=== PATIENT | male | born 1955 | race Caucasian/White ===

== ENCOUNTER 2016-12-10 11:31 | Emergency (ER) | payer MEDICARE, OTHER ==
[~2016-12-10] VITALS: Wt 104.5 kg
[~2016-12-10 11:31] MED LIST: ACET500C5 PO
[2016-12-10] MEDS ORDERED: LIDOCAINE 1%/EPI (MDV) 20 ML INJ IM ONE (13:00)
[2016-12-10] MEDS ORDERED: CLIN-73 PO (13:18)
--- NOTE | 2016-12-10 13:29 | ERD ---
ER Documentation Chief Complaint Date/Time DATE: 12/10/16 TIME: 13:20 Chief Complaint Pain and pus to where he had i and d. no redness noted, area healed. HPI 61 year old male presenting to the emergency department with past medical history of hypertension, hyperlipidemia presenting for a wound check of an abscess on his back that was drained a few weeks ago. Patient has been seen here on November 16 and was given antibiotics. Patient states that he finished his antibiotic last night. He states that he still saw a little drainage. ROS All systems reviewed and are negative except as per history of present illness. Medications Home Meds Active Scripts Clindamycin Hcl* (Clindamycin Hcl*) 300 Mg Capsule, 300 MG PO TID, #15 CAP Prov:ERCIA VELOZ PA-C 12/10/16 Acetaminophen* (Tylophen*) 500 Mg Capsule, 1 CAP PO Q6H Y for PAIN AND OR ELEVATED TEMP, #20 CAP Prov:LACIE SORIA PA-C 11/16/16 Allergies Allergies: Coded Allergies: Unknown: Unable to obtain (Unverified , 12/10/16) PMhx/Soc History of Surgery: Yes (lower back surgery) Anesthesia Reaction: No Hx Neurological Disorder: No Hx Respiratory Disorders: No Hx Cardiac Disorders: Yes (hypertension) Hx Psychiatric Problems: No Hx Miscellaneous Medical Probl: No Hx Alcohol Use: No Hx Substance Use: No Hx Tobacco Use: No Physical Exam Vitals Vital Signs Date Time Temp Pulse Resp B/P Pulse Ox O2 Delivery O2 Flow Rate FiO2 12/10/16 11:38 97.9 94 20 161/91 97 Physical Exam General: WD/WN, in no apparent distress, non-toxic appearing HENT: NC/AT Eyes: Conjunctiva normal Neck: Supple Pulm: Clear to auscultation, normal labored breathing; no wheezing/rales/ rhonchi heard CV: Good capillary refill GI: Non-distended, no guarding Back: No masses Ext: No clubbing, cyanosis, or edema Neuro: Moves on all fours Skin: indurated papule with previous healed incisional site, no surrounding erythema or drainage noted Normal turgor, color, and temperature. No ulcerations or rashes noted. Psych: Normal mood Results 24 hrs Current Medications Medications (Trade) Dose Ordered Sig/Ra Route PRN Reason Start Time Stop Time Status Last Admin Dose Admin Lidocaine/ Epinephrine (Xylocaine 1%/ Epi (Mdv) 20 ml) 20 ml ONCE ONCE IM 12/10/16 13:00 12/10/16 13:01 Cancel Lidocaine/ Epinephrine (Xylocaine 1%/ Epi) 20 ml ONCE INJ 12/10/16 13:30 12/10/16 13:31 Procedures/MDM This is a 61-year-old male presenting to the emergency department to check a wound on his upper back which is likely due to a sebaceous cyst. On examination the papule was indurated without any surrounding erythema, I discussed with patient that if I was to do an incision and drainage and that most likely no drainage would come out. An incision and drainage was attempted , patient is suitable to follow-up with the primary care physician to get a referral to see insurance manager. I discussed that sebaceous ears are likely to recur. There was no evidence of significant cellulitis, osteomyelitis. PROCEDURE NOTE: Verbal consent was obtained Wound was irrigated with normal saline Wound was cleansed with Betadine cc Lidocaine 1% with epinephrine was used as a local anesthetic #11 blade scalpel was used for a single 025cm incision. NO drainage of purulence occurred Procedure tolerated without complications Wound dressed with sterile gauze. Departure Diagnosis: Primary Impression: Encounter for wound re-check Additional Impression: Sebaceous cyst Condition: Stable Patient Instructions: Wound Care, Sebaceous Cyst, Infected (Abx Tx), Sebaceous Cyst [facility] Usted se larry hecho un examen mdico de control que le indica que no est en marely condicin que requiera tratamiento urgente en el Departamento de Emergencia. Un estudio ms profundo y el tratamiento de english condicin pueden esperar sin ningn riesgo hasta que usted sea atendida/o en el consultorio de english mdico o marely cl camden. Es responsabilidad suya arreglar marely elvia para el seguimiento del helena. MANEJO DE CONDICIONES NO URGENTES EN EL FUTURO 1) Si usted tiene un mdico de atencin primaria: Usted debera llamar a english mdico de atencin primaria antes de venir al departamento de emergencia. Despus de las horas de consultorio, english doctor o english asociado/a est disponible por telfono. El mdico o enfermero de abhishek en el servicio telefnico puede asesorarle por naomi medio para atender el problema, o helena contrario se puede programar marely elvia. 2) Si usted no tiene un mdico de atencin primaria: Llame al mdico o clnica de referencia que aparece abajo job las horas de consultorio para hacer marely elvia para que le vean. CLINICAS: [facility] [id number] [facility] [phone] [facility] [phone] [place] [id number] [phone] [facility]. [place] [phone] [facility]. [phone] [address] Additional Instructions: Visite a english mdico maana para un EXAMEN.Regrese a estas instalaciones si no se mejora clayton esperbamos o clayton le dijimos. [place] toda la medicina myke y clayton se le indic. Regrese a estas instalaciones si no se mejora clayton esperbamos o clayton le dijimos. ERICA VELOZ PA-C Dec 10, 2016 13:29
[2016-12-10] MEDS ORDERED: LIDOCAINE 1%/EPI 30 ML INJ INJ SCH (13:30)
== END 2016-12-10 13:30 | disposition home or self-care (01) ==
LOC: FTE 11:31
DX: Z48.01 Encounter for change or removal of surgical wound dressing (principal); L72.3 Sebaceous cyst; I10 Essential (primary) hypertension